=== PATIENT | female | born 2005 | race Caucasian/White ===

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

== ENCOUNTER 2024-01-01 10:23 | Emergency (ER) | payer OTHER, SELFPAY ==
[~2024-01-01] VITALS: Ht 160 cm; Wt 61.8 kg
[~2024-01-01 10:23] MED LIST changes: +FLUO-290; -FLUO10CA18
[2024-01-01 11:32] LABS: BASO % 0.5 % (0.0-1.0); EOS # 0.1 10^3/uL (0.0-0.5); EOS % 1.3 % (0.0-3.0); HEMATOCRIT 37.1 % (36.0-47.0); HEMOGLOBIN 11.3 g/dl (12.0-15.5); LYMPH # 1.6 10^3/uL (1.5-5.0); LYMPH % 24.6 % (24.0-44.0); MEAN CORPUSCULAR HEMOGLOBIN 19.4 pg (27.0-33.0); MEAN CORPUSCULAR HGB CONC 30.5 g/dl (32.0-36.5); MEAN CORPUSCULAR VOLUME 63.6 fl (80.0-96.0); MONO # 0.3 10^3/uL (0.0-0.8); MONO % 4.9 % (2.0-8.0); NEUTROPHILS # 4.3 10^3/uL (1.5-8.5); NEUTROPHILS % 68.4 % (36.0-66.0); PLATELET COUNT, AUTOMATED 235 10^3/uL (150-450); RED BLOOD COUNT 5.83 10^6/uL (4.00-5.40); WHITE BLOOD COUNT 6.3 10^3/uL (4.0-10.0)
[2024-01-01 11:57] LABS: ALBUMIN 4.2 G/DL (3.2-5.2); ALKALINE PHOSPHATASE 75 U/L (46-116); ALT/SGPT 17 U/L (7.0-40); AST/SGOT 12 U/L (<34); BILIRUBIN,TOTAL 0.7 MG/DL (0.3-1.2); BLOOD UREA NITROGEN 8 MG/DL (9-23); CALCIUM LEVEL 9.5 MG/DL (8.5-10.1); CARBON DIOXIDE LEVEL 29 MMOL/L (20-31); CHLORIDE LEVEL 106 MMOL/L (98-107); GLUCOSE, FASTING 83 MG/DL (60-100); POTASSIUM SERUM 4.3 MMOL/L (3.5-5.1); SODIUM LEVEL 141 MMOL/L (136-145); TOTAL PROTEIN 7.3 G/DL (5.7-8.2)
[2024-01-01] MEDS: MORPHINE 2 MG/ML 1ML VIAL IV ONE (12:32)
[2024-01-01 12:41] LABS: CK-MB VALUE MASS < 1.0 NG/ML (<3.6)
[2024-01-01 12:42] LABS: CPK CREATINE PHOSPHOKINASE 49 U/L (34-145); MB/CK RELATIVE INDEX 2.04 (< OR =4)
[2024-01-01 12:44] LABS: HCG, SERUM QUALITATIVE NEGATIVE (NEGATIVE)
[2024-01-01 13:25] LABS: CK-MB VALUE MASS < 1.0 NG/ML (<3.6)
[2024-01-01 13:26] LABS: CPK CREATINE PHOSPHOKINASE 50 U/L (34-145)
[2024-01-01 13:51] VITALS: BP 126/76; TEMP 97.8; O2SAT 97
== END 2024-01-01 14:04 | disposition home or self-care (01) ==
LOC: M ED 10:23
DX: R55 Syncope and collapse (principal); M54.50 Low back pain, unspecified; R01.1 Cardiac murmur, unspecified; W18.2XXA Fall in (into) shower or empty bathtub, initial encounter; Y92.002 Bathroom of unspecified non-institutional (private) residence as the place of occurrence of the external cause; Y93.89 Activity, other specified; Y99.9 Unspecified external cause status

== ENCOUNTER → 2024-03-17 | Outpatient (REF) | payer SELFPAY | LOC: M LAB REF 12:26 | PROVIDERS: ATTEND Physician Assistant Medical | DX: R05.9 Cough, unspecified (principal) ==

== ENCOUNTER 2025-05-29 16:06 | Emergency (ER) | payer SELFPAY ==
[~2025-05-29] VITALS: Ht 160 cm; Wt 63.2 kg
[2025-05-29 17:05] LABS: BASO # 0.0 10^3/uL (0.0-0.2); BASO % 0.3 % (0.0-1.0); EOS # 0.0 10^3/uL (0.0-0.5); EOS % 0.2 % (0.0-3.0); LYMPH # 0.6 10^3/uL (1.5-5.0); LYMPH % 6.4 % (24.0-44.0); MONO # 0.6 10^3/uL (0.0-0.8); MONO % 6.4 % (2.0-8.0); NEUTROPHILS # 8.2 10^3/uL (1.5-8.5); NEUTROPHILS % 86.5 % (36.0-66.0); PLATELET COUNT, AUTOMATED 191 10^3/uL (150-450)
[2025-05-29 17:11] LABS: SOFIA COVID ANTIGEN NEGATIVE (NEGATIVE)
[2025-05-29 17:27] LABS: ALT/SGPT 27 U/L (7.0-40); AST/SGOT 26 U/L (<34); CALCIUM LEVEL 9.1 MG/DL (8.5-10.1); CARBON DIOXIDE LEVEL 25 MMOL/L (20-31); CHLORIDE LEVEL 104 MMOL/L (98-107); CK-MB VALUE MASS < 1.0 NG/ML (<3.6); CREATININE FOR GFR 0.76 MG/DL (0.55-1.30); GLOMERULAR FILTRATION RATE > 90.0 (>60); HCG, SERUM QUALITATIVE NEGATIVE (NEGATIVE); POTASSIUM SERUM 4.0 MMOL/L (3.5-5.1); SODIUM LEVEL 138 MMOL/L (136-145)
[2025-05-29 17:30] LABS: CPK CREATINE PHOSPHOKINASE 49 U/L (34-145)
[2025-05-29] MEDS: NS (Normal Saline) 0.9% 1,000 ML IV ONE (17:45)
[2025-05-29] MEDS: KETOROLAC 30 MG/ML 1 ML VIAL IV ONE (17:45)
[2025-05-29 19:17] LABS: KETONE, URINE AUTO RFX NEGATIVE (NEGATIVE); LEUKOCYTE ESTERASE UR AUTO RFX NEGATIVE (NEGATIVE); MUCUS, URINE RFX SMALL (NEGATIVE); NITRITE, URINE AUTO RFX NEGATIVE (NEGATIVE); RBC, URINE AUTO RFX 72 /HPF (0-3); SQUAM EPITHELIAL CELL UR AURFX 10 /HPF (0-6); WBC, URINE AUTO RFX 40 /HPF (0-3)
[2025-05-29 19:31] VITALS: BP 104/58; TEMP 100.2; O2SAT 99
[2025-05-29] MEDS ORDERED: BENZ200C70 PO (19:50)
[2025-05-29] MEDS ORDERED: OSEL75CA PO (19:50)
[2025-05-29] MEDS ORDERED: MUCI1TAB16 PO (19:50)
[2025-05-29] MEDS: ACETAMINOPHEN 325 MG TAB PO ONE (19:55)
== END 2025-05-29 20:03 | disposition home or self-care (01) ==
LOC: M ED 17:49
DX: J09.X9 Influenza due to identified novel influenza A virus with other manifestations (principal); D64.9 Anemia, unspecified; R55 Syncope and collapse; R01.1 Cardiac murmur, unspecified
CPT/HCPCS: 71046; 80048; 80076; 81001; 82550; 82553; 84484; 84703; 85025; 87086; 87428; 93005; 96374; 99284; J1885